=== PATIENT | female | born 1960 | race Caucasian/White ===

== ENCOUNTER → 2023-01-06 12:14 | Outpatient (CLI) | payer OTHER, SELFPAY ==
--- NOTE | ~2023-01-06 | MR_ITS ---
EXAMINATION: MR shoulder LT wo con DATE: 01/06/2023 13:01 INDICATION: Left shoulder impingement TECHNIQUE: Magnetic resonance imaging (MRI) of the left shoulder was performed without intravenous co ntrast. Sequences included axial PD-weighted FS FSE, coronal oblique PD-weighted FS FSE, coronal obli que T2-weighted FS FSE, sagittal PD-weighted FS FSE, and sagittal T1-weighted SE. COMPARISON: None. FINDINGS: Coracoacromial arch: The acromion undersurface is curved in morphology (type II). The coracoacromial ligament is normal. M ild acromioclavicular osteoarthritis. Rotator cuff: Moderate supraspinatus tendinopathy with small severe partial-thickness bursal sided tear which exten ds 5 mm AP along the superior facet footplate of the posterior supraspinatus tendon.. This involves a pproximately two thirds of the tendon thickness but without medial retraction. Mild tendinopathy with out tear of the anterior infraspinatus tendon. The more posterior infraspinatus tendon and teres zaire r tendons are normal. The subscapularis tendon is normal. Normal rotator cuff muscle bulk and signal. Biceps tendon, glenoid labrum and glenohumeral cartilage: Long head of the biceps tendon is normal. There is likely degenerative tearing of the diminutive post erior superior to posterior labrum extending from the 11:00 position to the 8:00 position. Diffuse mi ld glenoid cartilage loss with smooth chondral surface. This most prominent in only posterior rim of the glenoid. Additional partial thickness cartilage loss with smooth chondral surface along the infer omedial aspect of the humeral head. There are small marginal osteophytes along the inferior humeral h ead and along the anterior and posterior rim of the glenoid. Fluid: Physiologic amount of fluid in the glenohumeral joint and biceps tendon sheath. No loose osteochondr al bodies. Small to moderate amount of fluid in the subacromial/subdeltoid bursa consistent with mild to moderate bursitis. Bones: Normal marrow signal with no edema, fracture or abnormal marrow replacing process. Mild cystic change at the lesser and greater tuberosities and at the cephalad exit from the intertubercular groove. IMPRESSION: 1. Moderate supraspinatus tendinopathy with small severe partial thickness bursal sided tear extendin g 5 mm AP along the superior facet insertion of the posterior tendon. 2. Mild glenohumeral osteoarthritis with degenerative tearing of the posterior superior to posterior glenoid labrum. 3. Mild to moderate subacromial/subdeltoid bursitis. Reviewed, dictated and finalized at location [facility] IMPRESSION: 1. Moderate supraspinatus tendinopathy with small severe partial thickness burs al sided tear extending 5 mm AP along the superior facet insertion of the poste rior tendon. 2. Mild glenohumeral osteoarthritis with degenerative tearing of the posterior superior to posterior glenoid labrum. 3. Mild to moderate subacromial/subdeltoid bursitis.
== END ==
PROVIDERS: PCP Family Medicine; Visit Provider Physician Assistant
DX: M25.812 Other specified joint disorders, left shoulder (principal); M19.012 Primary osteoarthritis, left shoulder
CPT/HCPCS: 73221